=== PATIENT | female | born 1945 | race Caucasian/White ===

== ENCOUNTER → 2019-01-15 | Outpatient (CLI) | payer MEDICARE, OTHER | END | disposition home or self-care (01) | LOC: OIH 10:47 | PROVIDERS: ATTEND Internal Medicine | DX: J44.9 Chronic obstructive pulmonary disease, unspecified (principal) | CPT/HCPCS: 71046 ==

== ENCOUNTER 2022-09-24 11:04 | Emergency (ER) | payer OTHER, MEDICARE ==
[~2022-09-24] VITALS: Ht 167.6 cm; Wt 68.5 kg
[2022-09-24 11:05] VITALS: BP 144/83
[2022-09-24] MEDS ORDERED: LORAZEPAM 1 MG TABLET PO ONE (12:30)
[2022-09-24] MEDS ORDERED: ACET-66 PO (12:50)
== END 2022-09-24 13:23 | disposition home or self-care (01) ==
LOC: EDH 11:04
DX: S00.83XA Contusion of other part of head, initial encounter (principal); V89.2XXA Person injured in unspecified motor-vehicle accident, traffic, initial encounter; Y93.I9 Activity, other involving external motion; Y92.488 Other paved roadways as the place of occurrence of the external cause; Y99.8 Other external cause status
CPT/HCPCS: 70450; 72125